=== PATIENT | male | born 1965 | race Caucasian/White ===

== ENCOUNTER 2017-05-22 03:01 | Emergency (ER) | payer SELFPAY ==
--- NOTE | 2017-05-22 03:26 | EDM.PDOC ---
ED HPI GENERAL MEDICAL PROBLEM - General Chief Complaint: Respiratory Problem Stated Complaint: COUGH Time Seen by Provider: 05/22/17 03:12 Source of Information: Reports: Patient History Limitations: Reports: No Limitations - History of Present Illness INITIAL COMMENTS - FREE TEXT/NARRATIVE: This is a 51-year-old male. He got sick on the with some coughing and congestion and it seemed to get better but now is getting worse. He is coughing up green and brown phlegm and he does have wheezing that he notices once in a while. He thinks he might have the flu but has not really been running a fever that he is noted. He also has a constantly sore throat that he complains of but he denies any history of strep throat. There's been no nausea vomiting no diarrhea. The patient does indicate he has got a lot of sinus drainage along with this. Chest Pain Score (Numeric/FACES): 8 - Related Data Allergies Allergy/AdvReac Type Severity Reaction Status Date / Time No Known Allergies Allergy Verified 05/22/17 03:07 Home Meds: Home Meds Amoxicillin/Potassium Clav [Augmentin 875-125 Tablet] 1 each PO BID #14 tablet 05/22/17 [Rx] Past Medical History Cardiovascular History: Reports: High Cholesterol Genitourinary History: Reports: UTI, Recurrent Social & Family History - Tobacco Use Smoking Status *Q: Never Smoker - Recreational Drug Use Recreational Drug Use: No ED ROS GENERAL - Review of Systems Review Of Systems: See Below Constitutional: Denies: Fever, Chills HEENT: Reports: Rhinitis Respiratory: Reports: Wheezing, Cough, Sputum Cardiovascular: Reports: No Symptoms Endocrine: Reports: No Symptoms GI/Abdominal: Denies: Diarrhea, Nausea, Vomiting Musculoskeletal: Reports: No Symptoms Skin: Reports: No Symptoms Neurological: Reports: No Symptoms Psychiatric: Reports: No Symptoms Hematologic/Lymphatic: Reports: No Symptoms ED EXAM, GENERAL - Physical Exam Exam: See Below Exam Limited By: No Limitations General Appearance: Alert, WD/WN, No Apparent Distress Eye Exam: Bilateral Eye: Normal Inspection Ears: Normal External Exam, Normal Canal, Normal TMs Nose: Normal Inspection, Normal Mucosa Throat/Mouth: Normal Inspection, Normal Lips, Normal Voice, No Airway Compromise , Other (Mildly inflamed oral pharynx but no tonsillar enlargement noted) Head: Normocephalic Neck: Supple Respiratory/Chest: No Respiratory Distress, Lungs Clear, Normal Breath Sounds, Other (No wheezing noted presently) Cardiovascular: Regular Rate, Rhythm, No Murmur GI/Abdominal: Soft Back Exam: Full Range of Motion Extremities: Normal Inspection, Normal Range of Motion Neurological: Alert, Oriented Psychiatric: Normal Affect, Normal Mood Skin Exam: Warm, Dry Course - Vital Signs Last Recorded V/S: Last Vital Signs Temp 98.2 F 05/22/17 03:07 Pulse 91 05/22/17 03:07 Resp 16 05/22/17 03:07 BP 151/115 H 05/22/17 03:07 Pulse Ox 95 05/22/17 03:07 - Orders/Labs/Meds Orders: Active Orders 24 hr Category Date Time Status CULTURE STREP A CONFIRMATION [] Stat Lab 05/22/17 03:15 Results Rapid Strep w/culture conf [STREP SCRN A RAPID W CULT Lab 05/22/17 03:15 Results CONF] [] Stat - Re-Assessments/Exams Free Text/Narrative Re-Assessment/Exam: 05/22/17 04:20 I spoke to the patient regarding the positive influenza a period however I think he was actually getting better and then started getting worse again so I believe he has a bacterial infection probably in the sinuses draining causing his sore throat that's continuous and also his bronchitis that he is developing now. Departure - Departure Time of Disposition: 04:20 Disposition: Home, Self-Care 01 Condition: Fair Clinical Impression: Influenza A Acute sinusitis Qualifiers: Sinusitis location: unspecified location Recurrence: non-recurrent Qualified Code(s): J01.90 - Acute sinusitis, unspecified Pharyngitis Qualifiers: Pharyngitis/tonsillitis etiology: unspecified etiology Qualified Code(s): J02.9 - Acute pharyngitis, unspecified Acute bronchitis Qualifiers: Bronchitis organism: unspecified organism Qualified Code(s): J20.9 - Acute bronchitis, unspecified - Discharge Information Prescriptions: Amoxicillin/Potassium Clav [Augmentin 875-125 Tablet] 1 each PO BID #14 tablet Referrals: Екатерина Estrella DO [Primary Care Provider] - Forms: ED Department Discharge Additional Instructions: Tomorrow when the pharmacy opens get the antibiotics, drink lots of water, take Tylenol or ibuprofen as needed for fever, rest and sleep as much as possible, use some Robitussin or Robitussin-DM as needed for your cough, follow-up with your family doctor next week for recheck, return to the ER if her symptoms worsen - My Orders Last 24 Hours: My Active Orders 05/22/17 03:15 CULTURE STREP A CONFIRMATION [] Stat Rapid Strep w/culture conf [STREP SCRN A RAPID W CULT CONF] [] Stat - Assessment/Plan Last 24 Hours: My Active Orders 05/22/17 03:15 CULTURE STREP A CONFIRMATION [] Stat Rapid Strep w/culture conf [STREP SCRN A RAPID W CULT CONF] [] Stat
== END 2017-05-22 04:30 | disposition home or self-care (01) ==
LOC: JD.ED 03:01
DX: J10.1 Influenza due to other identified influenza virus with other respiratory manifestations (principal); J20.9 Acute bronchitis, unspecified; E78.00 Pure hypercholesterolemia, unspecified
CPT/HCPCS: 87081; 87430; 87804; 99283

== ENCOUNTER 2019-08-22 18:26 | Emergency (ER) | payer OTHER ==
--- NOTE | 2019-08-22 19:04 | EDM.PDOC ---
ED HPI GENERAL MEDICAL PROBLEM - General Chief Complaint: Genitourinary Problem Stated Complaint: poss uti Time Seen by Provider: 08/22/19 18:40 Source of Information: Reports: Patient History Limitations: Reports: No Limitations - History of Present Illness INITIAL COMMENTS - FREE TEXT/NARRATIVE: Patient is a 54-year-old male who presents with complaints of burning with urination and frequency. States his symptoms began on Wednesday. He has a history of recurrent urinary tract infections. Dr. Celis is his urologist. His last UTI was about 1 year ago. States that he normally takes Bactrim and that works well. He has not had any fever, chills, back pain, nausea, vomiting, or diarrhea. Penis Pain Score (Numeric/FACES): 8 - Related Data Allergies Allergy/AdvReac Type Severity Reaction Status Date / Time No Known Allergies Allergy Verified 08/22/19 18:42 Home Meds: Home Meds Ascorbic Acid [Vitamin C] 500 mg PO DAILY 04/29/18 [History] atorvaSTATin [Lipitor] 80 mg PO DAILY 04/29/18 [History] Sulfamethoxazole/Trimethoprim [Bactrim Ds Tablet] 1 each PO BID #13 tablet 08/21 [Rx] Past Medical History Cardiovascular History: Reports: High Cholesterol Genitourinary History: Reports: UTI, Recurrent Social & Family History - Tobacco Use Smoking Status *Q: Never Smoker - Caffeine Use Caffeine Use: Reports: None - Recreational Drug Use Recreational Drug Use: No ED ROS GENERAL - Review of Systems Review Of Systems: Comprehensive ROS is negative, except as noted in HPI. ED EXAM, RENAL/ - Physical Exam Exam: See Below Exam Limited By: No Limitations General Appearance: Alert, WD/WN, No Apparent Distress Respiratory/Chest: No Respiratory Distress, Lungs Clear, Normal Breath Sounds, No Accessory Muscle Use, Chest Non-Tender Cardiovascular: Normal Peripheral Pulses, Regular Rate, Rhythm, No Edema, No Gallop, No JVD, No Murmur, No Rub GI/Abdominal: Normal Bowel Sounds, Soft, Non-Tender, No Organomegaly, No Distention, No Abnormal Bruit, No Mass Neurological: Alert, Oriented, CN II-XII Intact, Normal Cognition, Normal Gait, Normal Reflexes, No Motor/Sensory Deficits Psychiatric: Normal Affect, Normal Mood Skin Exam: Warm, Dry, Intact, Normal Color, No Rash Course - Vital Signs Last Recorded V/S: Last Vital Signs Temp 97.9 F 08/22/19 18:39 Pulse 90 08/22/19 18:39 Resp 16 08/22/19 18:39 BP 160/104 H 08/22/19 18:39 Pulse Ox 94 L 08/22/19 18:39 - Orders/Labs/Meds Labs: Laboratory Tests 08/22/19 08/22/19 08/22/19 Range/Units 18:46 18:56 18:56 WBC 11.02 H (4.23-9.07) K/mm3 RBC 5.10 (4.63-6.08) M/mm3 Hgb 15.4 (13.7-17.5) gm/dl Hct 45.3 (40.1-51.0) % MCV 88.8 (79.0-92.2) fl MCH 30.2 (25.7-32.2) pg MCHC 34.0 (32.2-35.5) g/dl RDW Std Deviation 40.9 (35.1-43.9) fL Plt Count 307 (163-337) K/mm3 MPV 10.4 (9.4-12.3) fl Neut % (Auto) 65.1 (34.0-67.9) % Lymph % (Auto) 18.9 L (21.8-53.1) % [place] % (Auto) 13.0 H (5.3-12.2) % Eos % (Auto) 2.3 (0.8-7.0) Baso % (Auto) 0.3 (0.1-1.2) % Neut # (Auto) 7.19 H (1.78-5.38) K/mm3 Lymph # (Auto) 2.08 (1.32-3.57) K/mm3 [place] # (Auto) 1.43 H (0.30-0.82) K/mm3 Eos # (Auto) 0.25 (0.04-0.54) K/mm3 Baso # (Auto) 0.03 (0.01-0.08) K/mm3 Manual Slide Review Sodium 139 (136-145) mEq/L Potassium 3.9 (3.5-5.1) mEq/L Chloride 104 (98-107) mEq/L Carbon Dioxide 27 (21-32) mEq/L Anion Gap 11.9 (5-15) BUN 14 (7-18) mg/dL Creatinine 1.1 (0.7-1.3) mg/dL Est Cr Clr Drug Dosing 70.11 mL/min Estimated GFR (MDRD) > 60 (>60) mL/min BUN/Creatinine Ratio 12.7 L (14-18) Glucose 125 H (74-106) mg/dL Calcium 9.0 (8.5-10.1) mg/dL Total Bilirubin 0.8 (0.2-1.0) mg/dL AST 21 (15-37) U/L ALT 42 (16-63) U/L Alkaline Phosphatase 101 (46-116) U/L Total Protein 7.0 (6.4-8.2) g/dl Albumin 3.8 (3.4-5.0) g/dl Globulin 3.2 gm/dL Albumin/Globulin Ratio 1.2 (1-2) Urine Color Yellow (Yellow) Urine Appearance Cloudy H (Clear) Urine pH 6.5 (5.0-8.0) Ur Specific [place] 1.015 (1.005-1.030) Urine Protein 1+ H (Negative) Urine Glucose (UA) Negative (Negative) Urine Ketones Negative (Negative) Urine Occult Blood 1+ H (Negative) Urine Nitrite Negative (Negative) Urine Bilirubin Negative (Negative) Urine Urobilinogen 0.2 (0.2-1.0) Ur Leukocyte Esterase 3+ H (Negative) Urine RBC 5-10 H (0-5) /hpf Urine WBC 75-100 H (0-5) /hpf Urine WBC Clumps Occasional (NOT SEEN) /hpf Ur Squamous Epith Cells 0-5 (0-5) /hpf Urine Bacteria Moderate H (FEW) /hpf Urine Mucus Few (FEW) /hpf Meds: Medications Discontinued Medications Generic Name Dose Route Start Last Admin Trade Name Freq PRN Reason Stop Dose Admin Trimethoprim/Sulfamethoxazole 1 tab 08/22/19 19:41 08/22/19 20:02 Septra Ds PO 08/22/19 19:42 1 tab ONETIME ONE Administration - Re-Assessments/Exams Free Text/Narrative Re-Assessment/Exam: 08/22/19 1915 Hematology was remarkable for a WBC slightly elevated at 11.02. Hematology was otherwise grossly unremarkable. Urinalysis was positive for 3+ leukocyte esterase, 5-10 RBCs, 75-100 WBCs, and moderate bacteria. Based on these findings the patient does have a urinary tract infection. We will start the patient on Bactrim. Urine has been sent for culture. Discharge instructions as documented. Departure - Departure Time of Disposition: 19:25 Disposition: Home, Self-Care 01 Condition: Fair Clinical Impression: UTI, Urinary tract infectious disease - Discharge Information *PRESCRIPTION DRUG MONITORING PROGRAM REVIEWED*: No *COPY OF PRESCRIPTION DRUG MONITORING REPORT IN PATIENT JEANNE: No Prescriptions: Sulfamethoxazole/Trimethoprim [Bactrim Ds Tablet] 1 each PO BID #13 tablet Instructions: Urinary Tract Infection, Adult Referrals: PCP,None [Primary Care Provider] - Bacilio Celis MD [Ordering Only Provider] - Forms: ED Department Discharge Additional Instructions: You were seen in the emergency department today for frequency and burning with urination. Your work-up included blood work as well as a urinalysis. Findings of this work-up are consistent with a diagnosis of a urinary tract infection. You have been started on Bactrim. Take this twice daily for 7 days. Your first dose was given in the emergency department. Your urine has been sent for culture. If the results this culture show that the bacteria in your urine is not susceptible to Bactrim, you will be notified and your antibiotic will be changed. If you should experience any new or worsening symptoms of concern, please do not hesitate to return to the emergency department. Sepsis Event Note - Evaluation Sepsis Screening Result: No Definite Risk - Focused Exam Date Exam was Performed: 08/23/19 Time Exam was Performed: 20:40
[2019-08-22] MEDS ORDERED: Sulfamethoxazole/Trimethoprim 800-160 MG Tab PO ONE (19:41)
== END 2019-08-22 20:02 | disposition home or self-care (01) ==
LOC: JD.ED 18:26
DX: N39.0 Urinary tract infection, site not specified (principal); E78.00 Pure hypercholesterolemia, unspecified; Z79.899 Other long term (current) drug therapy
CPT/HCPCS: 36415; 80053; 81001; 85025; 87086; 99283; A9270; 87088

== ENCOUNTER 2020-05-18 01:59 | Emergency (ER) | payer OTHER ==
[2020-05-18] MEDS ORDERED: Sodium Chloride 0.9% 1,000 ML IV SCH (02:45)
--- NOTE | 2020-05-18 02:48 | EDM.PDOC ---
ED HPI GENERAL MEDICAL PROBLEM - General Chief Complaint: Abdominal Pain Stated Complaint: lower abdominal pain Time Seen by Provider: 05/18/20 02:21 Source of Information: Reports: Patient History Limitations: Reports: No Limitations - History of Present Illness INITIAL COMMENTS - FREE TEXT/NARRATIVE: Mr. Mohr is a most pleasant 54-year-old gentleman who now presents to the ED after developing sharp right lower quadrant abdominal pain around 18:00 last night. His pain is made worse with virtually any movement, including coughing, turning or twisting, sitting up, going to the bathroom, or even passing gas. He reports having urinary frequency, which is normal for him, but no dysuria or gross hematuria. No recent fever, nausea, vomiting, or diarrhea. No prior marcelo lar symptoms. He did not take any aaya-[id number] or home remedies prior to coming to the ED. 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 The patient has a history of frequent urinary tract infections, although none since August 2019. He states that his Urologist has explained to him why, anatomically, he gets them, although he cannot himself tell me why. He states that his current symptoms are distinctly different than prior UTIs. He does not have associated flank pain. Here in the ED, the patient's initial BP is found to be modestly elevated at 159/105, otherwise, he is hemodynamically stable, afebrile, saturating 97% on room air. Prior to 18:00 last night, the patient denies having a recent fever, chills, sore throat, ear pain, nasal or sinus congestion, cough, dyspnea, chest pain, palpitations, nausea, vomiting, constipation, diarrhea, abdominal pain, urinary symptoms, recent weight gain or weight loss, recent bloody bowel movements or black bowel movements, recent joint aches, headaches, or rashes. The patient's PCP is at [facility] in [place], [place]. His Urologist is Dr. Bacilio Celis. He already received an influenza vaccine this season. Abdominal Pain Score (Numeric/FACES): 2 - Related Data Allergies Allergy/AdvReac Type Severity Reaction Status Date / Time No Known Allergies Allergy Verified 05/18/20 02:16 Home Meds: Home Meds Ascorbic Acid [Vitamin C] 500 mg PO DAILY 12/14/18 [History] atorvaSTATin [Lipitor] 80 mg PO DAILY 04/29/18 [History] Cholecalciferol (Vitamin D3) [Vitamin D3] 1,000 unit PO DAILY 05/18/20 [History] Sulfamethoxazole/Trimethoprim [Bactrim Ds Tablet] 1 tab PO Q12H #13 tablet 05/18/20 [Rx] Past Medical History Cardiovascular History: Reports: High Cholesterol - Past Surgical History HEENT Surgical History: Reports: Oral Surgery (dental extractions) Social & Family History - Tobacco Use Tobacco Use Status *Q: Never Tobacco User - Caffeine Use Caffeine Use: Reports: Coffee - Alcohol Use Alcohol Use History: Yes Alcohol Use Frequency: Rarely - Recreational Drug Use Recreational Drug Use: No - Living Situation & Occupation Living situation: Reports: (Apr 2020), Alone Occupation: Employed (personal driver) ED ROS GENERAL - Review of Systems Review Of Systems: Comprehensive ROS is negative, except as noted in HPI. ED EXAM, GI/ABD - Physical Exam Exam: See Below Exam Limited By: No Limitations General Appearance: Alert, WD/WN, No Apparent Distress Eyes: Bilateral: Normal Appearance, EOMI Ears: Normal External Exam, Hearing Grossly Normal Nose: Normal Inspection Throat/Mouth: Normal Voice, No Airway Compromise, Other (Wearing a mask) Head: Atraumatic, Normocephalic Neck: Normal Inspection, Full Range of Motion Respiratory/Chest: No Respiratory Distress, Lungs Clear, Normal Breath Sounds, No Accessory Muscle Use Cardiovascular: Normal Peripheral Pulses, Regular Rate, Rhythm, No Gallop, No JVD, No Murmur, No Rub GI/Abdominal Exam: Normal Bowel Sounds, Soft, Non-Tender (including to the RLQ), No Organomegaly, No Distention, No Abnormal Bruit, No Mass, Other (Rovsing sign absent. Obturator sign absent. Psoas sign absent. Heel drop sign absent.) Back Exam: Normal Inspection, Full Range of Motion. No: CVA Tenderness (L), CVA Tenderness (R) Extremities: Normal Inspection, Normal Range of Motion, Normal Capillary Refill Neurological: Alert, Oriented, Normal Cognition, No Motor/Sensory Deficits Psychiatric: Normal Affect Skin Exam: Warm, Dry, Intact, Normal Color, No Rash Course - Vital Signs Last Recorded V/S: Last Vital Signs Temp 36.1 C 05/18/20 05:17 Pulse 77 05/18/20 05:17 Resp 18 05/18/20 05:17 BP 153/94 H 05/18/20 05:17 Pulse Ox 97 05/18/20 05:17 - Orders/Labs/Meds Orders: Active Orders 24 hr Category Date Time Status Abdomen Pelvis w Cont [CT] Stat Exams 05/18/20 02:40 Taken CULTURE URINE [RM] Stat Lab 05/18/20 05:28 Ordered Sodium Chloride 0.9% [Normal Saline] 1,000 ml Med 05/18/20 02:45 Active IV ASDIRECTED Sodium Chloride 0.9% [Normal Saline] 100 ml Med 05/18/20 04:30 Active IV ASDIRECTED Medication Orders Sodium Chloride (Normal Saline) 1,000 mls @ 150 mls/hr IV ASDIRECTED TALI Last Admin: 05/18/20 02:54 Dose: 150 mls/hr Documented by: ARNALDO Sodium Chloride (Normal Saline) 100 mls @ 100 drops/min IV ASDIRECTED TALI Last Admin: 05/18/20 04:43 Dose: 100 drops/min Documented by: AMY Labs: Laboratory Tests 05/18/20 05/18/20 05/18/20 Range/Units 02:10 02:50 02:50 WBC 6.77 (4.23-9.07) K/mm3 RBC 4.88 (4.63-6.08) M/mm3 Hgb 14.9 (13.7-17.5) gm/dl Hct 44.2 (40.1-51.0) % MCV 90.6 (79.0-92.2) fl MCH 30.5 (25.7-32.2) pg MCHC 33.7 (32.2-35.5) g/dl RDW Std Deviation 41.9 (35.1-43.9) fL Plt Count 289 (163-337) K/mm3 MPV 10.2 (9.4-12.3) fl Neutrophils % (Manual) 49 (40-60) % Band Neutrophils % 4 (0-10) % Lymphocytes % (Manual) 28 (20-40) % Atypical Lymphs % 0 % Monocytes % (Manual) 15 H (2-10) % Eosinophils % (Manual) 4 (0.8-7.0) % Basophils % (Manual) 0 L (0.2-1.2) Platelet Estimate Adequate Plt Morphology Comment Normal RBC Morph Comment Normal Sodium 138 (136-145) mEq/L Potassium 4.6 (3.5-5.1) mEq/L Chloride 104 (98-107) mEq/L Carbon Dioxide 24 (21-32) mEq/L Anion Gap 14.6 (5-15) BUN 13 (7-18) mg/dL Creatinine 1.1 (0.7-1.3) mg/dL Est Cr Clr Drug Dosing 70.11 mL/min Estimated GFR (MDRD) > 60 (>60) mL/min BUN/Creatinine Ratio 11.8 L (14-18) Glucose 93 (74-106) mg/dL Calcium 9.2 (8.5-10.1) mg/dL Total Bilirubin 1.1 H (0.2-1.0) mg/dL AST 30 (15-37) U/L ALT 57 (16-63) U/L Alkaline Phosphatase 104 (46-116) U/L Total Protein 7.2 (6.4-8.2) g/dl Albumin 3.9 (3.4-5.0) g/dl Globulin 3.3 gm/dL Albumin/Globulin Ratio 1.2 (1-2) Urine Color Light yellow (Yellow) Urine Appearance Slt cloudy H (Clear) Urine pH 6.5 (5.0-8.0) Ur Specific [place] 1.015 (1.005-1.030) Urine Protein Negative (Negative) Urine Glucose (UA) Negative (Negative) Urine Ketones Negative (Negative) Urine Occult Blood Trace-lysed H (Negative) Urine Nitrite Negative (Negative) Urine Bilirubin Negative (Negative) Urine Urobilinogen 0.2 (0.2-1.0) Ur Leukocyte Esterase 3+ H (Negative) Urine RBC 10-20 H (0-5) /hpf Urine WBC 75-100 H (0-5) /hpf Urine WBC Clumps Many (NOT SEEN) /hpf Ur Epithelial Cells Not seen (0-5) /hpf Urine Bacteria Moderate H (FEW) /hpf Urine Mucus Rare (FEW) /hpf SARS-CoV-2 RNA (BARBI) (NEGATIVE) 05/18/20 Range/Units 03:26 WBC (4.23-9.07) K/mm3 RBC (4.63-6.08) M/mm3 Hgb (13.7-17.5) gm/dl Hct (40.1-51.0) % MCV (79.0-92.2) fl MCH (25.7-32.2) pg MCHC (32.2-35.5) g/dl RDW Std Deviation (35.1-43.9) fL Plt Count (163-337) K/mm3 MPV (9.4-12.3) fl Neutrophils % (Manual) (40-60) % Band Neutrophils % (0-10) % Lymphocytes % (Manual) (20-40) % Atypical Lymphs % % Monocytes % (Manual) (2-10) % Eosinophils % (Manual) (0.8-7.0) % Basophils % (Manual) (0.2-1.2) Platelet Estimate Plt Morphology Comment RBC Morph Comment Sodium (136-145) mEq/L Potassium (3.5-5.1) mEq/L Chloride (98-107) mEq/L Carbon Dioxide (21-32) mEq/L Anion Gap (5-15) BUN (7-18) mg/dL Creatinine (0.7-1.3) mg/dL Est Cr Clr Drug Dosing mL/min Estimated GFR (MDRD) (>60) mL/min BUN/Creatinine Ratio (14-18) Glucose (74-106) mg/dL Calcium (8.5-10.1) mg/dL Total Bilirubin (0.2-1.0) mg/dL AST (15-37) U/L ALT (16-63) U/L Alkaline Phosphatase (46-116) U/L Total Protein (6.4-8.2) g/dl Albumin (3.4-5.0) g/dl Globulin gm/dL Albumin/Globulin Ratio (1-2) Urine Color (Yellow) Urine Appearance (Clear) Urine pH (5.0-8.0) Ur Specific [place] (1.005-1.030) Urine Protein (Negative) Urine Glucose (UA) (Negative) Urine Ketones (Negative) Urine Occult Blood (Negative) Urine Nitrite (Negative) Urine Bilirubin (Negative) Urine Urobilinogen (0.2-1.0) Ur Leukocyte Esterase (Negative) Urine RBC (0-5) /hpf Urine WBC (0-5) /hpf Urine WBC Clumps (NOT SEEN) /hpf Ur Epithelial Cells (0-5) /hpf Urine Bacteria (FEW) /hpf Urine Mucus (FEW) /hpf SARS-CoV-2 RNA (BARBI) Negative (NEGATIVE) Meds: Medications Generic Name Dose Route Start Last Admin Trade Name Freq PRN Reason Stop Dose Admin Sodium Chloride 1,000 mls @ 150 mls/hr 05/18/20 02:45 05/18/20 02:54 Normal Saline IV 150 mls/hr ASDIRECTED TALI Administration Sodium Chloride 100 mls @ 100 drops/min 05/18/20 04:30 05/18/20 04:43 Normal Saline IV 100 drops/min ASDIRECTED TALI Administration Discontinued Medications Generic Name Dose Route Start Last Admin Trade Name Freq PRN Reason Stop Dose Admin Iopamidol 100 ml 05/18/20 04:21 05/18/20 04:43 Isovue-300 (61%) IVPUSH 05/18/20 04:22 100 ml ONETIME ONE Administration Trimethoprim/Sulfamethoxazole 1 tab 05/18/20 05:31 Septra Ds PO 05/18/20 05:32 ONETIME STA - Re-Assessments/Exams Free Text/Narrative Re-Assessment/Exam: 05/18/20 02:41 The etiology of the patient's pain is not immediately clear. While he has right lower quadrant pain with movement, he has no tenderness to palpation, which is quite odd. I have ordered a work-up that includes blood work, a urinalysis, and a CT of the abdomen and pelvis with oral and IV contrast. I have also ordered a swab for the SARS-CoV-2 virus in the event that he has appendicitis or some other admittable diagnosis. In the meantime, the patient will be given IV fluid. He declined an offer for both pain medication and antinausea medicine at this time. 05/18/20 05:33 The patient's CBC is unremarkable. His CMP is remarkable for a TBil slightly elevated at 1.1, with the remainder of his CMP being unremarkable. His urinalysis is remarkable for trace lysed occult blood with 10-20 RBCs, 3+ leukocyte esterase with 75-100 WBCs, nitrate negative with moderate bacteria, and no squamous epithelial cells seen. His swab for the SARS-CoV-2 virus has returned negative. Based on the above, I have ordered a urine culture, and will start the patient on Bactrim DS. 05/18/20 05:38 CT of the abdomen and pelvis with oral and IV contrast is read by [facility] as: 1. No acute intra-abdominal process identified. 2. The appendix is not well seen and appears normal in the right lower quadrant. 3. 7 mm nonobstructing stone lower pole left kidney. 05/18/20 05:50 Test results discussed with the patient. I will submit a prescription for the patient to complete a 7-day course of Bactrim DS, however, I would like him to contact Dr. Celis's office on 05/21/2020, to have them check on his urine culture results to make sure that he is on the correct antibiotic. The patient does not need a note for work. Departure - Departure Time of Disposition: 05:51 Disposition: Home, Self-Care 01 Condition: Good Clinical Impression: Cystitis - Discharge Information *PRESCRIPTION DRUG MONITORING PROGRAM REVIEWED*: Not Applicable *COPY OF PRESCRIPTION DRUG MONITORING REPORT IN PATIENT JEANNE: Not Applicable Referrals: PCP,Not In Area [Primary Care Provider] - Bacilio Celis MD [Ordering Only Provider] - Forms: ED Department Discharge Additional Instructions: You were seen in the emergency room after developing lower right abdominal pain last evening. Work-up in the ER included blood tests, a urinalysis, a swab for the SARS-CoV-2 virus, and a CT of your abdomen and pelvis. Your blood work was unremarkable, your swab for the SARS-CoV-2 virus returned negative, and the CT of your abdomen and pelvis was unremarkable. You do not have appendicitis. Your urinalysis found that you have a urinary tract infection. A sample of your urine has been sent for culture. You have been started on the antibiotic Bactrim DS, and a prescription for Bactrim DS has been sent to the [facility], located in the [facility] grocery store. Take 1 tablet of Bactrim DS every 12 hours, starting this evening, 05/18/2020, as prescribed. Finish the entire prescription unless told otherwise by a doctor. Stay adequately hydrated. It does not really matter what type of fluid you drink. We recommend that you contact the office of your urologist, Dr. Bacilio Celis, this coming 05/21/2020, to have them check on the your urine culture results, to make sure that you are on the correct antibiotic. If any other problems, please do not hesitate to return to the ER. Sepsis Event Note (ED) - Evaluation Sepsis Screening Result: No Definite Risk - Focused Exam Vital Signs: Vital Signs Temp Pulse Resp BP Pulse Ox 05/18/20 05:17 36.1 C 77 18 153/94 H 97 05/18/20 02:21 145/95 H 05/18/20 02:07 36.3 C 81 18 159/105 H 97 - My Orders Last 24 Hours: My Active Orders 05/18/20 02:40 Abdomen Pelvis w Cont [CT] Stat 05/18/20 02:45 Sodium Chloride 0.9% [Normal Saline] 1,000 ml IV ASDIRECTED 05/18/20 04:30 Sodium Chloride 0.9% [Normal Saline] 100 ml IV ASDIRECTED 05/18/20 05:28 CULTURE URINE [RM] Stat - Assessment/Plan Last 24 Hours: My Active Orders 05/18/20 02:40 Abdomen Pelvis w Cont [CT] Stat 05/18/20 02:45 Sodium Chloride 0.9% [Normal Saline] 1,000 ml IV ASDIRECTED 05/18/20 04:30 Sodium Chloride 0.9% [Normal Saline] 100 ml IV ASDIRECTED 05/18/20 05:28 CULTURE URINE [RM] Stat
[2020-05-18] MEDS ORDERED: Iopamidol 612 MG/ML 100 ML Bottle IVPUSH ONE (04:21)
[2020-05-18] MEDS ORDERED: Sodium Chloride 0.9% 100 ML IV SCH (04:30)
[2020-05-18] MEDS ORDERED: Sulfamethoxazole/Trimethoprim 800-160 MG Tab PO STA (05:31)
--- NOTE | 2020-05-18 11:14 | CT ---
CT abdomen and pelvis Technique: Multiple axial sections were obtained from above the dome of the diaphragm inferiorly to the pubic symphysis. Intravenous and oral contrast was utilized. Delayed images were also obtained through the abdomen and pelvis Comparison: Prior CT abdomen and pelvis study of 07/28/13. Findings: Multiple small low density lesions are noted within the liver. These have increased in number from prior exam which are compatible with multiple cysts. Larger cysts are noted on prior study which are stable. Visualized lung bases show nothing acute. Spleen appears within normal limits. Small amount of accessory splenic tissue is noted off the inferior spleen. Gallbladder contains no calcified gallstones. Pancreas is normal. Kidneys show multiple small low density lesions on the left side as well as lesser low density areas on the right side compatible with cysts. Stable area of increased density noted within the right kidney measuring approximately 3.1 cm which is close to being stable from previous exam. Lower left kidney shows a nonobstructing calculus measuring approximately 7 mm. Delayed images show contrast throughout the ureters and bladder. Aorta shows atherosclerotic change without aneurysm. Atherosclerotic change continues into the iliac vessels. Appendix appears normal. No pelvic mass or adenopathy is appreciated. Bone window settings were reviewed. 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 No acute osseous abnormality is appreciated. Multiple calcifications are seen within the prostate gland which are stable from prior study. Impression: 1. Nonacute findings as noted above. 2. Appendix appears normal. Nothing acute is appreciated. Diagnostic code #2 I agree with preliminary report from [facility], finalized on 05/18/20, 6:36 AM [employer]
== END 2020-05-18 06:07 | disposition home or self-care (01) ==
LOC: JD.ED 01:59
DX: N30.90 Cystitis, unspecified without hematuria (principal); E78.00 Pure hypercholesterolemia, unspecified; Z20.822 Contact with and (suspected) exposure to COVID-19; Z79.899 Other long term (current) drug therapy
CPT/HCPCS: 36415; 74177; 80053; 81001; 85007; 85027; 87086; 87088; 87186; 87635; 99284; A9270; J7030; Q9967; 99283; U0002